=== PATIENT | male | born 1950 | race Caucasian/White ===

== ENCOUNTER → 2016-09-18 | Outpatient (CLI) | payer OTHER | LOC: FIMAGING 14:37 | PROVIDERS: ATTEND Family Medicine | DX: I10 Essential (primary) hypertension (principal); Z82.49 Family history of ischemic heart disease and other diseases of the circulatory system ==

== ENCOUNTER → 2016-10-22 | Outpatient (CLI) | payer OTHER, MEDICARE | LOC: FIMAGING 07:46 | PROVIDERS: ATTEND Surgery | PROC: 3E0W3HZ Introduction of Radioactive Substance into Lymphatics, Percutaneous Approach (ICD-10-PCS; principal; 2016-10-22) | DX: Z01.818 Encounter for other preprocedural examination (principal); C43.72 Malignant melanoma of left lower limb, including hip | CPT/HCPCS: 38792; 78195; A9520 ==

== ENCOUNTER → 2016-12-12 | Outpatient (CLI) | payer OTHER, MEDICARE | LOC: FIMAGING 08:31 | PROVIDERS: ATTEND Family Medicine | DX: G50.8 Other disorders of trigeminal nerve (principal) ==

== ENCOUNTER → 2017-06-04 | Outpatient (CLI) | payer OTHER, MEDICARE | LOC: FIMAGING 13:45 | PROVIDERS: ATTEND Orthopaedic Surgery | DX: M17.11 Unilateral primary osteoarthritis, right knee (principal) ==

== ENCOUNTER 2017-06-06 18:24 | Emergency (ER) | payer OTHER, MEDICARE ==
[2017-06-06] MEDS ORDERED: NS 1,000 ML IV ONE (18:55)
--- NOTE | 2017-06-06 18:56 | EDPHY ---
H & P Stated Complaint: FEVER, COUGH X A FEW HOURS HPI/ROS: HPI CHIEF COMPLAINT: Fever and cough HISTORY OF PRESENT ILLNESS: This patient is a 66-year-old male, otherwise healthy does have significant past medical history for hypertension, presents emergency room by private vehicle for chills, cough nonproductive. Patient reports that around 5:00 a.m. he developed a cough this is progressed to chills and fever. T-max at home of 103. He is febrile here. He denies any vomiting or chest pain. Denies shortness of breath. Main complaint is chills, and cough. He did not get his flu shot this year. Past Medical History: Hypertension Past Surgical History: Denies surgical history except for prostate surgery Social History: Denies daily use drugs alcohol tobacco products. Family History: Noncontributory ROS REVIEW OF SYSTEMS: A comprehensive 10 point review of systems is otherwise negative aside from elements mentioned in the history of present illness. Exam Constitutional appears nontoxic triage nursing summary reviewed, vital signs reviewed, awake/alert. Vital signs noted to be febrile upon arrival. Eyes normal conjunctivae and sclera, EOMI, PERRLA. HENT normal inspection, atraumatic, moist mucus membranes, no epistaxis, neck supple/ no meningismus, no raccoon eyes. Respiratory clear to auscultation bilaterally, normal breath sounds, no respiratory distress, no wheezing. Cardiovascular rate normal, regular rhythm, no murmur, no edema, distal pulses normal. Gastrointestinal soft, non-tender, no rebound, no guarding, normal bowel sounds, no distension, no pulsatile mass. Genitourinary no CVA tenderness. Musculoskeletal no midline vertebral tenderness, full range of motion, no calf swelling, no tenderness of extremities, no meningismus, good pulses, neurovascularly intact. Skin pink, warm, & dry, no rash, skin atraumatic. Neurologic awake, alert and oriented x 3, AAOx3, moves all 4 extremities equally, motor intact, sensory intact, CN II-XII intact, normal cerebellar, normal vision, normal speech. Psychiatric normal mood/affect. Heme/Lymph/Immune no lymphadenopathy. Differential Diagnosis: Includes but is not limited to in a particular order acute febrile illness, dehydration, electrolyte disturbance, pneumonia, viral syndrome, influenza Medical Decision Making: Plan for this patient chest x-ray two view to rule pneumonia, basic blood work, influenza and re-evaluate. Re-evaluation: ED x-ray chest two view reviewed. No evidence of pneumonia. Blood work is reviewed as well. Influenza is pending. 2019: Patient is influenza a positive. Chest x-ray shows no pneumonia. Blood work reviewed. Updated patient on influenza a. Will start on Tamiflu. Patient understands to drink lots of fluids stay well-hydrated. Tylenol Motrin for pain and fever control. Tamiflu as prescribed. Return emergency room if worsening symptoms questions or concerns he understands. Source: Patient - Personal History Current Tetanus/Diphtheria Vaccine: Yes Current Tetanus Diphtheria and Acellular Pertussis (TDAP): Yes - Medical/Surgical History Hx Asthma: No Hx Chronic Respiratory Disease: No Hx Diabetes: No Hx Cardiac Disease: No Hx Renal Disease: No Hx Cirrhosis: No Hx Alcoholism: No Hx HIV/AIDS: No Hx Splenectomy or Spleen Trauma: No Other PMH: HERNIA SURG, R HAND SURG, HTN. prostate arterio ambolisation - Social History Smoking Status: Former smoker Constitutional: Initial Vital Signs Temperature (C) 38.9 C H 06/06/17 18:41 Heart Rate 92 06/06/17 18:41 Respiratory Rate 17 06/06/17 18:41 Blood Pressure 156/95 H 06/06/17 18:41 O2 Sat (%) 93 06/06/17 18:41 O2 Delivery Mode Room Air Allergies/Adverse Reactions: Sulfa (Sulfonamide Antibiotics) Allergy (Severe, Verified 05/22/17 16:38) Anaphylaxis Tetanus Vaccines and Toxoid [Tetanus] Allergy (Intermediate, Verified 02/19/17 14:07) Other-Enter Comments Home Medications: Medication Instructions Recorded Aspirin [Aspirin 81mg (*)] 81 mg PO DAILY 06/15/16 Lisinopril/Hctz 20/12.5MG 1 ea PO BID 06/15/16 [Zestoretic/Prinzide 20/12.5MG (*)] Terazosin HCl [Hytrin 2 MG (*)] 2 mg PO QID 06/15/16 amLODIPine BESYLATE [Norvasc 10 mg 10 mg PO DAILY 06/15/16 (*)] Herbals/Supplements -Info Only 1 ea PO DAILY 02/14/17 ALPRAZolam [Alprazolam] 0.5 mg PO DAILY PRN 05/22/17 Anastrozole [Arimidex 1 mg (*)] 1 mg PO GRACIA@05/22/17 Dutasteride [Avodart 0.5 MG (*)] 0.5 mg PO GRACIA@05/22/17 Fluticasone Hfa 220 Mcg [Flovent 1 puffs IH BID 05/22/17 220 MCG Hfa MDI (*)] Zolpidem Tartrate [Ambien 5MG (*)] 5 mg PO HS PRN 05/22/17 Oseltamivir Phosphate [Tamiflu 75 75 mg PO BID #14 cap 06/06/17 mg (*)] Medical Decision Making - Data Points Laboratory Results: Laboratory Results 06/06/17 19:00 06/06/17 19:00 06/06/17 06/06/17 06/06/17 19:20 19:15 19:00 WBC RBC Hgb Hct MCV MCH MCHC RDW Plt Count MPV Neut % (Auto) Lymph % (Auto) [place] % (Auto) Eos % (Auto) Baso % (Auto) Nucleat RBC Rel Count Absolute Neuts (auto) Absolute Lymphs (auto) Absolute Monos (auto) Absolute Eos (auto) Absolute Basos (auto) Absolute Nucleated RBC Immature Gran % Immature Gran # VBG Lactic Acid Sodium 135 mEq/L mEq/L (134-144) Potassium 3.6 mEq/L mEq/L (3.5-5.2) Chloride 101 mEq/L mEq/L (97-110) Carbon Dioxide 23 mEq/l mEq/l (22-31) Anion Gap 11 mEq/L mEq/L (8-16) BUN 22 mg/dL mg/dL (7-23) Creatinine 1.0 mg/dL mg/dL (0.7-1.3) Estimated GFR > 60 Glucose 99 mg/dL mg/dL (70-100) Calcium 9.8 mg/dL mg/dL (8.5-10.4) Urine Color YELLOW Urine Appearance CLEAR Urine pH 5.0 (5.0-7.5) Ur Specific [place] 1.020 (1.002-1.030) Urine Protein NEGATIVE (NEGATIVE) Urine Ketones NEGATIVE (NEGATIVE) Urine Blood NEGATIVE (NEGATIVE) Urine Nitrate NEGATIVE (NEGATIVE) Urine Bilirubin NEGATIVE (NEGATIVE) Urine Urobilinogen NEGATIVE EU EU (0.2-1.0) Ur Leukocyte Esterase NEGATIVE (NEGATIVE) Urine Glucose NEGATIVE (NEGATIVE) Nasal Influenza A PCR Pending Nasal Influenza B PCR Pending 06/06/17 06/06/17 19:00 19:00 WBC 8.56 10^3/uL 10^3/uL (3.80-9.50) RBC 5.22 10^6/uL 10^6/uL (4.40-6.38) Hgb 15.8 g/dL g/dL (13.7-17.5) Hct 44.7 % % (40.0-51.0) MCV 85.6 fL fL (81.5-99.8) MCH 30.3 pg pg (27.9-34.1) MCHC 35.3 g/dL g/dL (32.4-36.7) RDW 12.6 % % (11.5-15.2) Plt Count 229 10^3/uL 10^3/uL (150-400) MPV 9.9 fL fL (8.7-11.7) Neut % (Auto) 84.9 % H % (39.3-74.2) Lymph % (Auto) 7.5 % L % (15.0-45.0) [place] % (Auto) 6.3 % % (4.5-13.0) Eos % (Auto) 0.7 % % (0.6-7.6) Baso % (Auto) 0.4 % % (0.3-1.7) Nucleat RBC Rel Count 0.0 % % (0.0-0.2) Absolute Neuts (auto) 7.27 10^3/uL H 10^3/uL (1.70-6.50) Absolute Lymphs (auto) 0.64 10^3/uL L 10^3/uL (1.00-3.00) Absolute Monos (auto) 0.54 10^3/uL 10^3/uL (0.30-0.80) Absolute Eos (auto) 0.06 10^3/uL 10^3/uL (0.03-0.40) Absolute Basos (auto) 0.03 10^3/uL 10^3/uL (0.02-0.10) Absolute Nucleated RBC 0.00 10^3/uL 10^3/uL (0-0.01) Immature Gran % 0.2 % % (0.0-1.1) Immature Gran # 0.02 10^3/uL 10^3/uL (0.00-0.10) VBG Lactic Acid 1.3 mmol/L mmol/L (0.7-2.1) Sodium Potassium Chloride Carbon Dioxide Anion Gap BUN Creatinine Estimated GFR Glucose Calcium Urine Color Urine Appearance Urine pH Ur Specific [place] Urine Protein Urine Ketones Urine Blood Urine Nitrate Urine Bilirubin Urine Urobilinogen Ur Leukocyte Esterase Urine Glucose Nasal Influenza A PCR Nasal Influenza B PCR Medications Given: Discontinued Medications Acetaminophen (Tylenol) 1,000 mg PO EDNOW ONE Stop: 06/06/17 19:02 Last Admin: 06/06/17 19:11 Dose: 1,000 mg Sodium Chloride (Ns) 1,000 mls @ 0 mls/hr IV EDNOW ONE; Wide Open PRN Reason: Protocol Stop: 06/06/17 18:56 Last Admin: 06/06/17 19:11 Dose: 1,000 mls Ibuprofen (Motrin) 800 mg PO EDNOW ONE Stop: 06/06/17 19:02 Last Admin: 06/06/17 19:11 Dose: 800 mg Departure - Departure Disposition: Home, Routine, Self-Care Clinical Impression: Cough, Influenza A Fever Qualifiers: Fever type: unspecified Qualified Code(s): R50.9 - Fever, unspecified Condition: Good Instructions: Fever in Adults (ED), Acute Cough (ED) Additional Instructions: 1. Drink lots of fluids stay well-hydrated. 2. Return emergency room if you have worsening symptoms questions or concerns. 3. Alternate Tylenol Motrin every 4-6 hours for fever and pain control. Referrals: OSMIN VELEZ [Primary Care Provider] - As per Instructions Prescriptions: Oseltamivir Phosphate [Tamiflu 75 mg (*)] 75 mg PO BID #14 cap
[2017-06-06] MEDS ORDERED: ACETAMINOPHEN 500 MG TAB PO ONE (19:01)
[2017-06-06] MEDS ORDERED: IBUPROFEN 800 MG TAB PO ONE (19:01)
[2017-06-06] MEDS ORDERED: IBUPROFEN 200 MG TAB PO ONE (19:08)
[2017-06-06 19:18] LABS: PLATELET COUNT 229 10^3/uL (150-400)
[2017-06-06 20:01] VITALS: TEMP 102
[2017-06-06 20:12] VITALS: BP 153/87; PULSE 88; RESP 18; O2SAT 92
[2017-06-06] MEDS ORDERED: OSELTAMIVIR PHOSPHATE 75 MG CAP PO ONE (20:18)
== END 2017-06-06 20:38 | disposition home or self-care (01) ==
DX: J10.1 Influenza due to other identified influenza virus with other respiratory manifestations (principal); I10 Essential (primary) hypertension; E86.9 Volume depletion, unspecified; Z79.82 Long term (current) use of aspirin; Z87.891 Personal history of nicotine dependence

== ENCOUNTER 2017-06-10 14:36 | Emergency (ER) | payer OTHER, MEDICARE ==
[2017-06-10 14:43] VITALS: RESP 18; TEMP 94.1; O2SAT 98
--- NOTE | 2017-06-10 15:04 | CPEKG ---
Heart Rate: 49 RR Interval: 1224 P-R Interval: 220 QRSD Interval: 94 QT Interval: 468 QTC Interval: 423 P [place]: 50 QRS [place]: -44 T Wave [place]: 10 EKG Severity - ABNORMAL ECG - EKG Impression: SINUS BRADYCARDIA EKG Impression: LEFT ANTERIOR FASCICULAR BLOCK Electronically Signed By: Eran Reyna 11-Jun-2017 11:36:50
[2017-06-10] MEDS ORDERED: NS 1,000 ML IV ONE (15:16)
--- NOTE | 2017-06-10 15:30 | EDPHY ---
HPI/HX/ROS/PE/MDM Narrative: CHIEF COMPLAINT: Lightheaded HISTORY OF PRESENT ILLNESS: The patient is a 66 y/o male with a history of anxiety, hypertension, and influenza (diagnosed 5 days ago) complaining of lightheadedness, near syncope, and tingling in his hands. Five days ago he was seen at this ED and diagnosed with influenza. He was started on Tamiflu and sent home for rest and fluids. He reports mild nausea with Tamiflu and he drank some fluids but not much. His fever dissipated to under a hundred without medication this morning. Today he went shopping and 90 minutes later he began feeling lightheaded, near syncope, and tingling in his hands. Symptoms mostly dissipated in ten minutes, though he remained slightly lightheaded. EMS evaluated him on scene and found no abnormalities in their exam. His picked him up and took him to the ED. While in the car on the way over he began experiencing worsened lightheadedness and tingling in his hands. Symptoms lessened before arrival in the ED. He remains slightly lightheaded. He had associated shortness of breath, which he attributes to anxiety. He denies sweating, chest pain, abdominal pain, vomiting, diarrhea, cough, or other associated symptoms. He denies history or cardiac stents, failed treadmill test , atrial fibrillation, atrial flutter, or other cardiac issues. He denies recent panic attacks with numbness or tingling. He denies experiencing tachycardia during the episodes. He denies heavy alcohol consumption, marijuana use, or illicit drug use. REVIEW OF SYSTEMS: Aside from elements discussed in the HPI, a comprehensive 10-point review of systems was reviewed and is negative. PAST MEDICAL HISTORY: Hypertension, anxiety, influenza (diagnosed 5 days ago) , hernia repair SOCIAL HISTORY: at bedside, social drinker, lives in [place] VITAL SIGNS: Reviewed by me GENERAL: Well-developed, well-nourished, resting comfortably in no respiratory distress. No cough. HEENT: Atraumatic. Eyes: No icterus, no injection. Mouth: moist mucous membranes. Slightly erythema, no lesions. Neck: supple with no adenopathy. LUNGS: Clear to auscultation bilaterally, no wheezes, rhonchi or rales. CARDIAC: Slightly bradycardic rate and rhythm, no rubs, murmurs or gallops. ABDOMEN: Soft, nontender, nondistended, bowel sounds normal. BACK: No CVA tenderness. EXTREMITIES: No trauma. No edema. Range of motion is normal throughout. NEURO: Alert and oriented, grossly nonfocal. Denies current tingling or numbness in hands SKIN: Warm and dry, no rash. PSYCHIATRIC: Normal mentation, no agitation. ED Course: 12-LEAD EKG: Please see the full report in [facility]. My interpretation: Sinus bradycardia. The patient presents with dizziness, hand tingling, and near syncope. Five days ago he was diagnosed with influenza. He reports that his symptoms have improved but he has not been drinking lots of fluids. Today, after shopping for an hour and a half he began feeling lightheaded and near syncope with tingling in his hands. He does not have any neurologic symptoms at this time and neuro exam is normal. He denies history of cardiac issues. Plan for labs, EKG, and 1L fluids. 1622: The patient's EKG was not indicative of a cardiac event. His troponin was negative. His potassium is slightly low at 3. He feels better with fluids. Symptoms are likely related to dehydration. Orthostatics will be rechecked prior to release. If orthostatics are normal, he will be released with dehydration. Follow-up instructions and return precautions given. The patient agrees to this course of action. MDM: Diff dx of patients near syncope was considered including but not limited to vasovagal syncope, arrhythmia, dehydration, and blood loss. - Data Points Laboratory Results: Laboratory Results 06/10/17 15:35 06/10/17 15:35 Medications Given: Discontinued Medications Sodium Chloride (Ns) 1,000 mls @ 0 mls/hr IV ONCE ONE; Wide Open PRN Reason: Protocol Stop: 06/10/17 15:17 Last Admin: 06/10/17 15:38 Dose: 1,000 mls Potassium Chloride (Klor-Con) 40 meq PO ONCE ONE Stop: 06/10/17 16:13 Last Admin: 06/10/17 16:28 Dose: 40 meq General Time Seen by Provider: 06/10/17 15:02 Initial Vital Signs: Initial Vital Signs Temperature (C) 34.5 C L 06/10/17 14:41 Heart Rate 65 06/10/17 14:41 Respiratory Rate 18 06/10/17 14:41 Blood Pressure 147/88 H 12/26/17 14:41 O2 Sat (%) 98 06/10/17 14:41 O2 Delivery Mode Room Air Allergies/Adverse Reactions: Sulfa (Sulfonamide Antibiotics) Allergy (Severe, Verified 05/22/17 16:38) Anaphylaxis Tetanus Vaccines and Toxoid [Tetanus] Allergy (Intermediate, Verified 02/19/17 14:07) Other-Enter Comments Home Medications: Medication Instructions Recorded Aspirin [Aspirin 81mg (*)] 81 mg PO DAILY 06/15/16 Lisinopril/Hctz 20/12.5MG 1 ea PO BID 06/15/16 [Zestoretic/Prinzide 20/12.5MG (*)] Terazosin HCl [Hytrin 2 MG (*)] 2 mg PO QID 06/15/16 amLODIPine BESYLATE [Norvasc 10 mg 10 mg PO DAILY 06/15/16 (*)] Herbals/Supplements -Info Only 1 ea PO DAILY 02/14/17 ALPRAZolam [Alprazolam] 0.5 mg PO DAILY PRN 05/22/17 Anastrozole [Arimidex 1 mg (*)] 1 mg PO GRACIA@09 05/22/17 Dutasteride [Avodart 0.5 MG (*)] 0.5 mg PO GRACIA@05/22/17 Fluticasone Hfa 220 Mcg [Flovent 1 puffs IH BID 05/22/17 220 MCG Hfa MDI (*)] Zolpidem Tartrate [Ambien 5MG (*)] 5 mg PO HS PRN 05/22/17 Oseltamivir Phosphate [Tamiflu 75 75 mg PO BID #14 cap 06/06/17 mg (*)] Departure - Departure Disposition: Home, Routine, Self-Care Clinical Impression: Dizziness Condition: Good Instructions: Lightheadedness (ED), Dizziness (ED) Additional Instructions: 1. Increase fluid intake. 2. Follow-up with your primary care provider if your symptoms continue. 3. Return to the ED for any worsening of condition. Referrals: OSMIN VELEZ [Primary Care Provider] - As per Instructions Report Scribed for: Elma Sandhu Report Scribed by: Diana Lo Date of Report: 06/10/17 Time of Report: 16:11 Physician Review and Approval Statement: Portions of this note were transcribed by a manager medical affairs. I personally performed a history, physical exam, medical decision making, and confirmed accuracy of information the transcribed note.
[2017-06-10 15:46] LABS: PLATELET COUNT 216 10^3/uL (150-400)
[2017-06-10] MEDS ORDERED: POTASSIUM CL 20 MEQ TAB PO ONE (16:12)
[2017-06-10 16:24] VITALS: BP 154/95; PULSE 56
== END 2017-06-10 17:20 | disposition home or self-care (01) ==
DX: R42 Dizziness and giddiness (principal); I10 Essential (primary) hypertension; E86.9 Volume depletion, unspecified; Z79.82 Long term (current) use of aspirin

== ENCOUNTER 2017-06-18 08:01 | Observation (INO) | payer OTHER, MEDICARE ==
[~2017-06-18 08:01] MED LIST: ROPIVACAINE 0.2% 80 MG, EPINEPHrine 0.2 MG, KETOROLAC TROMETHAMINE 30 MG in SYRINGE 0 ML IU ONE; TRANEXAMIC ACID 3,000 MG in NS 50 ML IRR ONE; TRANEXAMIC ACID 3,000 MG/50 ML BAG IRR ONE; VANCOMYCIN 1 GM VIAL ONE
[2017-06-18] MEDS ORDERED: DEXAMETHASONE 4 MG/ML VIAL IVP ONE (09:08)
[2017-06-18] MEDS ORDERED: ceFAZolin 2 GM/SWFI 2 GM/20 ML SYR IVP ONE (09:08)
[2017-06-18] MEDS ORDERED: FAMOTIDINE 20 MG TAB PO ONE (09:08)
[2017-06-18] MEDS ORDERED: ACETAMINOPHEN 325 MG TAB PO ONE (09:08)
[2017-06-18] MEDS ORDERED: LR 1,000 ML IV ONE (09:09)
[2017-06-18] MEDS ORDERED: LIDOCAINE 1% 2 ML INJ ID PRN (09:09)
--- NOTE | 2017-06-18 09:34 | PDHPUP ---
History & Physical Update H&P update statement: This history and physical update is based on an assessment of the patient which was completed after admission or registration (within 24 hours), but prior to the surgery/procedure. H&P update: H&P reviewed & patient examined, no change in patient's condition since H&P completed
[2017-06-18] MEDS ORDERED: MIDAZOLAM 2 MG/2 ML VIAL ONE (10:08)
[2017-06-18] MEDS ORDERED: MIDAZOLAM 2 MG/2 ML VIAL IVP ONE (10:09)
--- NOTE | 2017-06-18 10:10 | PDANEPAE ---
ANE Past Medical History - Cardiovascular History Hx Hypertension: Yes Hx Arrhythmias: No Hx Chest Pain: No Hx Coronary Artery / Peripheral Vascular Disease: No Hx CHF / Valvular Disease: No Hx Palpitations: No - Pulmonary History Hx COPD: No Hx Asthma/Reactive Airway Disease: No Hx Recent Upper Respiratory Infection: No Hx Oxygen in Use at Home: No Hx Sleep Apnea: Yes Sleep Apnea Screening Result - Last Documented: Positive Pulmonary History Comment: SHAWNA, cpap no 02 - Neurologic History Hx Cerebrovascular Accident: No Hx Seizures: No Hx Dementia: No - Endocrine History Hx Diabetes: No - Renal History Hx Renal Disorders: No - Liver History Hx Hepatic Disorders: No - Neurological & Psychiatric Hx Hx Neurological and Psychiatric Disorders: No Neurological / Psychiatric History Comment: mild anxiety - Cancer History Hx Cancer: Yes Cancer History Comment: melanoma removed - Congenital Disorder History Hx Congenital Disorders: Yes Congenital History Comment: hypertension - GI History Hx Gastrointestinal Disorders: Yes Gastrointestinal History Comment: hx of reflux - Chronic Pain History Chronic Pain: Yes (left knee) - Surgical History Prior Surgeries: arthoscopy R knee. lymph node exision. carpal tunnel ANE Review of Systems Review of Systems: - Exercise capacity METS (RN): 4 METS ANE Patient History - Allergies Allergies/Adverse Reactions: Sulfa (Sulfonamide Antibiotics) Allergy (Severe, Verified 05/22/17 16:38) Anaphylaxis Tetanus Vaccines and Toxoid [Tetanus] Allergy (Intermediate, Verified 02/19/17 14:07) Other-Enter Comments - Home Medications Home Medications: Aspirin [Aspirin 81mg (*)] 81 mg PO DAILY 06/15/16 [Last Taken 06/11/17] Lisinopril/Hctz 20/12.5MG [Zestoretic/Prinzide 20/12.5MG (*)] 1 ea PO BID [Last Taken 06/17/17 18:00] Terazosin HCl [Hytrin 2 MG (*)] 2 mg PO QID 06/15/16 [Last Taken 06/18/17 06:30] amLODIPine BESYLATE [Norvasc 10 mg (*)] 10 mg PO DAILY 06/15/16 [Last Taken 08/31 06:30] Herbals/Supplements -Info Only 1 ea PO DAILY 02/14/17 [Last Taken 05/28/17] ALPRAZolam [Alprazolam] 0.5 mg PO DAILY PRN 05/22/17 [Last Taken Unknown] Anastrozole [Arimidex 1 mg (*)] 1 mg PO GRACIA@05/22/17 [Last Taken 06/15/17] Dutasteride [Avodart 0.5 MG (*)] 0.5 mg PO GRACIA@05/22/17 [Last Taken 06/15/17] Fluticasone Hfa 220 Mcg [Flovent 220 MCG Hfa MDI (*)] 1 puffs IH BID 05/22/17 [ Last Taken 06/18/17 06:30] Zolpidem Tartrate [Ambien 5MG (*)] 5 mg PO HS PRN 05/22/17 [Last Taken Unknown] - NPO status NPO Since - Liquids (Date): 06/18/17 NPO Since - Liquids (Time): 06:30 NPO Since - Solids (Date): 06/17/17 NPO Since - Solids (Time): 23:30 - Anes Hx Anes Hx: no prior problems - Smoking Hx Smoking Status: Former smoker - Family Anes Hx Family Hx Anesthesia Complications: none ANE Labs/Vital Signs - Vital Signs Blood Pressure: 136/84 Heart Rate: 61 Respiratory Rate: 16 O2 Sat (%): 93 Height: 175.26 cm Weight: 79.379 kg ANE Physical Exam - Airway Neck exam: FROM Mallampati Score: Class 2 Mouth exam: normal dental/mouth exam - Pulmonary Pulmonary: no respiratory distress, no rales or rhonchi, clear to auscultation - Cardiovascular Cardiovascular: regular rate and rhythym, no murmur, rub, or gallop - ASA Status ASA Status: II ANE Anesthesia Plan Anesthesia Plan: spinal Regional Anesthesia: adductor canal FNB
[2017-06-18] MEDS ORDERED: PROPOFOL 200 MG/20 ML VIAL ONE ×2 (10:16→11:01)
[2017-06-18] MEDS ORDERED: fentaNYL 100 MCG/2 ML INJ ONE (10:16)
[2017-06-18] MEDS ORDERED: ZOLPIDEM TARTRATE 5 MG TAB PO PRN (10:46)
[2017-06-18] MEDS ORDERED: ALPRAZolam 0.5 MG TAB PO PRN (10:46)
[2017-06-18] MEDS ORDERED: ONDANSETRON DISINTEGRATING 4 MG TAB PO PRN (10:47)
[2017-06-18] MEDS ORDERED: MAGNESIUM HYDROXIDE 30 ML UDCUP PO PRN (10:47)
[2017-06-18] MEDS ORDERED: LACTULOSE 20 GM/30 ML UDCUP PO PRN (10:47)
[2017-06-18] MEDS ORDERED: PROMETHAZINE HCL 25 MG SUPPR PR PRN (10:47)
[2017-06-18] MEDS ORDERED: TEMAZEPAM 15 MG CAP PO PRN (10:47)
[2017-06-18] MEDS ORDERED: BISACODYL 10 MG SUPP PR PRN (10:47)
[2017-06-18] MEDS ORDERED: diphenhydrAMINE 25 MG CAP PO PRN (10:47)
[2017-06-18] MEDS ORDERED: DIPHENOXYLATE/ATROPINE LOMOTIL 1 TAB PO PRN (10:47)
[2017-06-18] MEDS ORDERED: ONDANSETRON 4 MG/2 ML VIAL IVP PRN ×2 (10:47→11:21)
[2017-06-18] MEDS ORDERED: PROMETHAZINE HCL 25 MG/ML INJ IVP PRN ×2 (10:47→11:21)
[2017-06-18] MEDS ORDERED: POLYETHYLENE GLYCOL 3350 17 GM PKT PO PRN (10:47)
[2017-06-18] MEDS ORDERED: METOCLOPRAMIDE 10 MG/2 ML VIAL IVP PRN (10:47)
[2017-06-18] MEDS ORDERED: LR 1,000 ML IV SCH (11:00)
[2017-06-18] MEDS ORDERED: BUPIVACAINE/EPI 0.5% 30 ML SDV ONE (11:03)
[2017-06-18] MEDS ORDERED: DEXAMETHASONE 4 MG/ML VIAL ONE ×2 (11:06)
[2017-06-18] MEDS ORDERED: NALOXONE HCL 0.4 MG/ML INJ IVP PRN (11:21)
[2017-06-18] MEDS ORDERED: ENALAPRILAT DIHYDRATE 1.25 MG/ML VIAL IVP PRN (11:21)
[2017-06-18] MEDS ORDERED: LR 500 ML IV PRN (11:21)
[2017-06-18] MEDS ORDERED: LABETALOL HCL 5 MG/ML 20 ML MDV IVP PRN (11:21)
[2017-06-18] MEDS ORDERED: OXYCODONE/APAP 5/325 TAB PO PRN (11:21)
[2017-06-18] MEDS ORDERED: fentaNYL 100 MCG/2 ML INJ IVP PRN (11:21)
--- NOTE | 2017-06-18 11:39 | POSTOPPROG ---
Post Op Note Date of Operation: 06/18/17 Surgeon: Magda Kilpatrick Physical Security Engineer: wesley kilpatrick Anesthesiologist: dr. sutherland Anesthesia: Spinal, Other (Specify) (adductor canal block) Pre-op Diagnosis: right knee OA and AVN Post-op Diagnosis: same Indication: right knee pain due to AVN Procedure: right medial knee partial knee arthroplasty robot assisted Findings: severe AVN medial knee Inf/Abcess present in the surg proc area at time of surgery?: No EBL: 50-100
[2017-06-18] MEDS: TERAZOSIN HCL 2 MG CAP PO SCH ×3 (12:00→16:38)
--- NOTE | 2017-06-18 13:25 | POSTANESTH ---
Post Anesthetic Evaluation Cardiovascular Status: Normal, Stable, Similar to Pre-Op Cond Respiratory Status: Normal, Stable, Similar to Pre-op Cond. Level of Consciousness/Mental Status: Can Participate in Eval, Alert and Oriented Pain Control: Adequate, Prn Tx Ordered Nausea/Vomiting Control: Adequate, Prn Tx Ordered Complications Possibly Related to Anesthesia: None Noted
[2017-06-18] MEDS: ACETAMINOPHEN 325 MG TAB PO SCH ×3 (13:32→22:57)
[2017-06-18] MEDS: CYCLOBENZAPRINE 10 MG TAB PO PRN (15:38)
[2017-06-18] MEDS: oxyCODONE IR 5 MG TAB PO PRN ×3 (15:38→22:14)
[2017-06-18] MEDS ORDERED: LISINOPRIL/HCTZ 20/12.5MG 1 EA TAB PO SCH (18:00)
[2017-06-18] MEDS: ceFAZolin 2 GM/DEXTROSE 100 ML IV SCH (18:27)
[2017-06-18 20:03] VITALS: RESP 16
[2017-06-18] MEDS: ASPIRIN 81 MG CHEWABLE TAB PO SCH (20:23)
[2017-06-18] MEDS: FAMOTIDINE 20 MG TAB PO SCH (20:23)
[2017-06-18] MEDS: SENNOSIDES/DOCUSATE SODIUM TAB PO SCH (20:24)
[2017-06-18] MEDS: FLUTICASONE HFA 220 MCG MDI IH SCH ×3 (20:33→21:30)
[2017-06-18] MEDS ORDERED: FLUTICASONE 220 MCG IH SCH (21:00)
[2017-06-19] MEDS: FAMOTIDINE 20 MG TAB PO SCH (04:21)
[2017-06-19] MEDS: ceFAZolin 2 GM/DEXTROSE 100 ML IV SCH (04:21)
--- NOTE | 2017-06-19 05:36 | GOP ---
[f rep st] OPERATIVE REPORT DATE OF OPERATION: 06/18/2017 SURGEON: Roseanna Rollins MD BUTTON PUSHER: FILIPPO Aaron. ANESTHESIA: Spinal. PREOPERATIVE DIAGNOSIS: Right knee osteoarthritis. POSTOPERATIVE DIAGNOSIS: Right knee osteoarthritis. PROCEDURE PERFORMED: Right medial compartment partial knee replacement with computer navigation and robotic assist. FINDINGS: INDICATIONS: This is a 66 year old male with progressive pain of the right knee unresponsive to cons ervative care. Risks and benefits of surgical intervention were explained in detail. DESCRIPTION OF PROCEDURE: The patient was brought to the operating room and placed on the table in s upine position. Spinal anesthesia was induced without difficulty. A pneumatic tourniquet was applie d about the left knee, left thigh, left femur. The leg was prepped and draped in sterile fashion. A ttention was turned first to the distal aspect of the femur. At 3 cm proximal to the lateral rise of the femur, 2 percutaneous half pins were placed for fixation of the femoral array. In a similar fas hion, 2 pins were placed anterolateral on the tibia for fixation of the tibial array. External land marking and registration of the hip center was performed without difficulty. After exsanguination by elevation, the tourniquet was inflated to 250 mmHg. Incision was made from the tibial tuberosity to the superior pole of the patella. Dissection was car ried out through the subcutaneous tissue to the deep fascia using Bovie electrocautery for hemostasis . Medial parapatellar arthrotomy was carried out to the superior pole of the patella. The medial co llateral ligament was elevated and the infrapatellar fat pad was resected. Internal femoral and tibi al registration was carried out without difficulty and the femoral and tibial checkpoints were placed and verified for accuracy. Attention was turned to the femur. The foot print for the size 4 femoral component was cut with the 6 mm bur using the Parastructure robotic system and verified for accuracy against the CT based plan. The hole was cut for the femoral post. In a similar fashion, the 6 mm bur was used to cut the foot print for t he size 4 tibial component using the KINA system and verified for accuracy against the CT based plan. Attention was turned to the posterior aspect of the knee and remnants of the medial meniscus were exc ised. The posterior capsule was injected with ropivacaine, epinephrine and Toradol. Trial reduction was carried out and there was excellent range of motion, alignment and stability using the size 4 fe moral component and the size 4 tibial component, 4 x 8 mm polyethylene. All trials were then removed. The joint was thoroughly irrigated and carefully dried. One package o f cement and 1 gram of vancomycin were mixed in the vacuum mixer and placed on the fixation surfaces of all components. The components were implanted and all excess cement was thoroughly removed. Impla nt placement was verified against the CT view plan and found to be excellent. The tourniquet was deflated and all bleeders were coagulated. The wound was thoroughly irrigated and closed using interrupted sutures of 2-0 Vicryl for the joint capsule. The subcu was closed with 3-0 Vicryl and the skin with 4-0 Monocryl. Dermabond and Steri-Strips were applied, followed by a compr essive dressing. The patient was then moved from the operating room to the recovery room in good con dition, having tolerated the procedure well. CASE CLASSIFICATION: Clean. /[id number]/MODL
[2017-06-19] MEDS: ACETAMINOPHEN 325 MG TAB PO SCH ×2 (06:03→12:13)
[2017-06-19] MEDS: oxyCODONE IR 5 MG TAB PO PRN ×2 (06:03→10:21)
[2017-06-19 08:20] VITALS: TEMP 97.7
[2017-06-19] MEDS: ASPIRIN 81 MG CHEWABLE TAB PO SCH (08:41)
[2017-06-19] MEDS: TERAZOSIN HCL 2 MG CAP PO SCH (08:42)
[2017-06-19] MEDS: SENNOSIDES/DOCUSATE SODIUM TAB PO SCH (08:43)
[2017-06-19] MEDS: CYCLOBENZAPRINE 10 MG TAB PO PRN (08:43)
[2017-06-19] MEDS ORDERED: LISINOPRIL/HCTZ 20/12.5MG 1 EA TAB PO SCH (09:00)
[2017-06-19] MEDS: FLUTICASONE HFA 220 MCG MDI IH SCH (09:18)
[2017-06-19] MEDS ORDERED: MAG HYDROX/AL HYDROX/SIMETH 30 ML UDCUP PO PRN (09:41)
[2017-06-19] MEDS ORDERED: CALCIUM CARBONATE 500 MG CHEWABLE TAB PO PRN (09:43)
[2017-06-19] MEDS ORDERED: SIMETHICONE 80 MG TAB CHEW PO PRN (09:51)
[2017-06-19 10:35] VITALS: O2SAT 95
[2017-06-19 11:43] VITALS: BP 136/91; PULSE 52
--- NOTE | 2017-06-19 12:25 | SOAPPROG ---
SOAP Progress Note Assessment/Plan: Assessment: Patient is doing well s/p R med MPL pain is well controlled on oxycodone VTE ppx: recommend ASA 81 mg BID anemia: level expected initially postop d/c planning: d/c to home spasm: sent flexeril to pharmacy vague history of desat postop per day nurse, but no documentation overnight by nurse. Requested that ARIC Lujan, monitor patient today while sleeping and assess whether he needs home oxygen. No issues documented, do not anticipate home oxygen needs at this time Plan: 06/19/17 12:22 Subjective: Jj is doing well, denies SOB, chest pain. c/o heartburn Objective: Vital Signs Temp Pulse Resp BP Pulse Ox 36.5 C 52 L 16 136/91 H 95 06/19/17 11:41 06/19/17 11:41 06/19/17 11:41 06/19/17 11:41 06/19/17 11:41 Laboratory Results 06/19/17 04:31 06/18/17 06/19/17 06/20/17 05:59 05:59 05:59 Intake Total 1390 200 Output Total 950 100 Balance 440 100 RLE: incision dressing is clean and dry, NVI, +pf/df ICD10 Worksheet Patient Problems: Problems Problem Status Onset Osteoarthritis Acute - ICD10 Problem Qualifiers (1) Osteoarthritis
--- NOTE | 2017-06-19 14:08 | GDS ---
[f rep st] DISCHARGE SUMMARY ADMITTING DIAGNOSIS: Right knee osteoarthritis. DISCHARGE DIAGNOSIS: Right knee osteoarthritis. PROCEDURE: Right partial knee arthroplasty, medial compartment, robot-assisted. DVT PROPHYLAXIS: Recommend aspirin 81 mg twice daily for 4 weeks. BRIEF DESCRIPTION OF HOSPITAL STAY: Patient was admitted for an elective joint arthroplasty. The patient tolerated the procedure well and has passed physical therapy. The patient was given appropriate antibiotic prophylaxis and venous thromboembolism prophylaxis. The patient's pain was well controlled on oral pain medication, patient was holding down food, and had urinated. Decision was made to discharge the patient. The patient was given post-operative prescriptions pre-operatively. PLANS: Follow up as scheduled at Dr. Rollins office in 3 weeks. /[id number]/MODL MTDD
--- NOTE | 2017-06-19 14:10 | ASDISCHSUM ---
Discharge Information Plan Status:Home with No Needs Medically Cleared to Leave: Discharge Date:06/19/2017 01:12 PM CM D/C Disposition:Home, Routine, Self-Care ADT D/C Disposition:Home, Routine, Self-Care Projected Discharge Date:06/19/2017 01:12 PM Transportation at D/C: Discharge Delay Reason: Follow-Up Date:06/19/2017 01:12 PM Discharge Slot: Final Diagnosis: Placement Information Patient Contact Information Contact Name:NEREYDA Relationship: Address:[address] City:[place] Alternate Phone: [facility]/Zip Code:[place] [address] Email: Financial Information Financial Class: Primary Plan Desc:MEDICARE OUTPATIENT Primary Plan Number:[id number] Secondary Plan Desc:[employer]/MDR SUPPLEMENT Secondary Plan Number:[id number] Assessment Information 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 video CM Note CM Note Notes: Jj is a 66 year-old male who is primarily active. He has obtained 2 walkers for his home since he has one flight of stairs to the bedroom. Jj said that Julee Rollins did not recommend any at home physical therapy. He has seen the online video and will be discharging home with his post-surgery. Date Signed: 06/11/2017 04:17 PM Electronically Signed By:Georgie Urias Intervention Information Intervention Type:*Incorrect Registration Date of Service:06/18/2017 04:45 PM Patient Type:Inpatient Staff Member:ARIC Gates, Sirisha Hours: Discipline: Severity: Comment: Intervention Type:*CHILDS-Signed Date of Service:06/19/2017 12:01 PM Patient Type:Observation Staff Member:Georgie Urias Hours: Discipline: Severity: Comment:
== END 2017-06-19 13:12 | disposition home or self-care (01) ==
LOC: F3N 08:01 → INTOOBSV 08:01 → F3N 13:02
PROVIDERS: ADMIT Orthopaedic Surgery; ATTEND Orthopaedic Surgery
PROC: 8E0Y0CZ Robotic Assisted Procedure of Lower Extremity, Open Approach (ICD-10-PCS; principal; 2017-06-18 10:15)
PROC: 0SRC0JZ Replacement of Right Knee Joint with Synthetic Substitute, Open Approach (ICD-10-PCS; principal; 2017-06-18 10:15)
DX: M17.11 Unilateral primary osteoarthritis, right knee (principal); G47.33 Obstructive sleep apnea (adult) (pediatric); I10 Essential (primary) hypertension; Z85.820 Personal history of malignant melanoma of skin
CPT/HCPCS: 27446; 73560; 97110; 97116; 97161; 97165; C1713; C1776; G8978; G8979; G8980; G8987; G8988; G8989; J0171; J0690; J1100; J1885; J2250; J2405; J2704; J2795; J3010; J3370

== ENCOUNTER 2018-07-27 08:42 | Emergency (ER) | payer OTHER, MEDICARE ==
--- NOTE | 2018-07-27 09:23 | EDPHY ---
General Time Seen by Provider: 07/27/18 09:23 Narrative: CLINICAL IMPRESSION: Asymptomatic hypertension ASSESSMENT/PLAN: Patient is a 67-year-old male with a history of anxiety and hypertension who presents to the emergency department with reports of elevated blood pressure prior to arrival. Patient is afebrile, he is not toxic appearing and in no acute distress. His physical exam is unremarkable. His blood pressure in the emergency department was 151/92 without evidence of hypertensive urgency or emergency. Patient with isolated blood pressure at home with diastolic reported at 110, he is extremely nervous secondary to family history of stroke. Patient is on multi antihypertensive regimen without recent changes of antihypertensives however new addition of Paxil; query contributory to elevated blood pressure. Patient is well established with his primary care provider and understands the importance of close follow-up. I called and discussed this case with Dr. Villanueva, he will see this patient this afternoon for repeat examination He understands that secondary causes for underlying hypertension are still possible however are best worked up through his primary care provider. There were no indications for additional testing or imaging while in the emergency department. On repeat exam and prior to discharge the patient is well-appearing, he has no other questions or concerns. Strict return precautions discussed-he will return for development of headache, visual changes , dizziness, numbness or tingling of extremities, focal weakness or for any other concerning symptom. Patient verbalizes understanding and he is in agreement with this plan. DIFFERENTIAL DX: Differential diagnosis includes but not limited to, also and no specific order hypertensive emergency, hypertensive urgency, medication noncompliance, CVA ED COURSE: CHIEF COMPLAINT: Elevated blood pressure HPI: Patient is a 67-year-old male who presents to the emergency department with complaints of elevated blood pressure this morning. Patient endorses longstanding history of hypertension currently on terazosyn, amlodipine and lisinopril/HCTZ no recent changes in antihypertensives. Patient reports he is able to tell when his blood pressure is elevated, he felt like it was elevated this morning and found it to be 180/110. He became very anxious as he has a family history of stroke. He was recently started on Paxil secondary to underlying anxiety and panic attacks, feels that his elevated blood pressure might be related to the addition of this medication. Patient denies any headache, vision loss, numbness or tingling of extremities, focal weakness, chest pain, shortness of breath or extremity swelling. Patient subsequently took his blood pressure medications since however came to the emergency department because he would like to "rule out organic causes including pheochromocytoma". Patient denies any recent fevers, chills or other constitutional symptoms. PAST MEDICAL HISTORY: Anxiety and hypertension Family History: Stroke Social History: Denies smoking or illicit drug use ROS: A full 10 point review of systems was negative except for those mentioned in HPI. PHYSICAL EXAM: General Appearance: Well-appearing, no acute distress. HEENT: TMs are clear bilaterally no perforation or FB, no injection, no evidence of serous or mucopurulent otitis. Oropharynx clear is no erythema or exudates, no tonsillar hypertrophy or asymmetry. Dentition without abnormality. Eyes: PERRLA, no acute vision change, nystagmus, swelling, discharge, pain or photosensitivity. Funduscopic exam reveals no evidence of papilledema, retinal hemorrhages, cotton wool spots or AV nicking- optic disc is clear and crisp bilaterally. Conjunctiva pink, no pallor or injection Neck: Supple, nontender, no lymphadenopathy, no midline pain, FROM, no meningismus. Respiratory: There are no retractions, lungs are clear to auscultation. Cardiac: Regular rate and rhythm, no murmurs or gallops. Gastrointestinal: Abdomen is soft, nontender, bowel sounds normal, no masses/ hernia, no rigidity, guarding or focal peritoneal findings. Skin: Warm, dry, no rashes, no nodules on palpation. MEDICAL DECISION MAKING: Patient was seen independently. Secondary supervising physician at time of evaluation was Dr. Gabriel, I discussed this patient and plan of care with him however he did not evaluate this patient. Diagnosis: Asymptomatic hypertension. New, requires workup Summary: See Assessment and Plan for summary of ED visit Clinical lab tests: Not applicable. Independent visualization of images, tracing, or specimens: Not applicable. Decision to obtain medical records or history from someone other than the patient: No Review / Summarize previous medical records: Yes Discussed patient with another provider: Yes, Dr. Gabriel and Dr. Villanueva Patient Progress: Stable, discharge. - History Smoking Status: Former smoker - Objective Vital Signs: Initial Vital Signs Temperature (C) 36.4 C 07/27/18 08:55 Heart Rate 51 L 07/27/18 08:55 Respiratory Rate 16 07/27/18 08:55 Blood Pressure 153/92 H 07/27/18 08:55 O2 Sat (%) 97 07/27/18 08:55 O2 Delivery Mode Room Air Allergies/Adverse Reactions: Sulfa (Sulfonamide Antibiotics) Allergy (Severe, Verified 07/27/18 08:53) Anaphylaxis Tetanus Vaccines and Toxoid [Tetanus] Allergy (Intermediate, Verified 07/27/18 08:53) Other-Enter Comments Home Medications: Medication Instructions Recorded Lisinopril/Hctz 20/12.5MG 1 ea PO BID 06/15/16 [Zestoretic/Prinzide 20/12.5MG (*)] Terazosin HCl [Hytrin 2 MG (*)] 2 mg PO QID 06/15/16 amLODIPine BESYLATE [Norvasc 10 mg 10 mg PO DAILY 06/15/16 (*)] Herbals/Supplements -Info Only 1 ea PO DAILY 02/14/17 ALPRAZolam [Alprazolam] 0.5 mg PO DAILY PRN 05/22/17 Anastrozole [Arimidex 1 mg (*)] 1 mg PO GRACIA@05/22/17 Dutasteride [Avodart 0.5 MG (*)] 0.5 mg PO GRACIA@05/22/17 Zolpidem Tartrate [Ambien 5MG (*)] 5 mg PO HS PRN 05/22/17 Acetaminophen [Tylenol 325mg (*)] 650 mg PO Q6HRS tab 06/19/17 Aspirin [Aspirin 81mg (*)] 81 mg PO BID #0 06/19/17 Sennosides/Docusate Sodium 1 - 2 tab PO BID tab 06/19/17 [Senokot-S] Paxil 07/27/18 Departure - Departure Disposition: Home, Routine, Self-Care Clinical Impression: Asymptomatic hypertension Condition: Good Instructions: Hypertension (ED) Additional Instructions: DISCHARGE INSTRUCTIONS FROM YOUR DOCTOR Thank you for visiting our emergency department today. Please keep in mind that discharge from the emergency department does not mean that there is nothing wrong - it simply means that we have not identified an emergency condition that requires further evaluation or treatment in the hospital. You should always plan to follow up with primary care for re-evaluation of your condition in the next 2-[address] Villanueva to schedule an appointment for this afternoon or tomorrow. I have spoken with him and he is aware that you were in the emergency department. People present with illnesses and injuries in different ways, and it is always possible that we have missed something. You may always return for re-evaluation if symptoms worsen or if they are not improving or if you develop new/different symptoms. Again, thank you for choosing our emergency department. We hope that you feel better. Referrals: Petros Villanueva MD [Primary Care Provider] - 1 day without fail
[2018-07-27 10:10] VITALS: BP 151/87
== END 2018-07-27 10:10 | disposition home or self-care (01) ==
DX: I10 Essential (primary) hypertension (principal)